=== PATIENT | female | born 1950 | race Asian ===

== ENCOUNTER 2018-02-19 13:29 | Inpatient (IN) | payer MEDICARE ==
[~2018-02-19] VITALS: Ht 157.5 cm; Wt 61.4 kg
[2018-02-19 14:00] VITALS: BP 120/80
[2018-02-19] MEDS ORDERED: ACET-2853 MT (14:14)
[2018-02-19] MEDS ORDERED: GUAI474L3 PO (14:14)
[2018-02-19] MEDS ORDERED: ENOX40DI8 SQ (14:14)
[2018-02-19] MEDS ORDERED: CLON-457 PO (14:14)
[2018-02-19] MEDS ORDERED: CEFE1FRO2 IV (14:14)
[2018-02-19] MEDS ORDERED: AZIT500T5 MT (14:14)
[2018-02-19 15:53] VITALS: BP 130/79
[2018-02-19 16:00] VITALS: BP 116/69
[2018-02-19] MEDS: CEFEPIME 1,000 MG in DEXTROSE 5% WATER 50 ML IV SCH (17:59)
[2018-02-19 18:00] VITALS: BP 120/77
[2018-02-19] MEDS: VANCOMYCIN 1 G PREMIX 200 ML IV SCH (18:25)
[2018-02-19 20:00] VITALS: BP 110/75
[2018-02-19] MEDS: AZITHROMYCIN 500MG in DEXTROSE 5% WATER 250ML IV SCH (21:30)
[2018-02-19 22:00] VITALS: BP 108/72
[2018-02-20] VITALS (11 sets, daily range): BP systolic 106–147; BP diastolic 69–92
[2018-02-20] MEDS: CEFEPIME 1,000 MG in DEXTROSE 5% WATER 50 ML IV SCH ×2 (05:16→16:30)
[2018-02-20 05:57] LABS: INR 1.1; PARTIAL THROMBOPLASTIN TIME 35.7 sec (23.4-31.0); PROTHROMBIN TIME 10.7 sec (9.1-11.1)
[2018-02-20] MEDS: VANCOMYCIN 1 G PREMIX 200 ML IV SCH (06:01)
[2018-02-20 06:11] LABS: CHLORIDE 102 mEq/L (98-107)
[2018-02-20 06:47] LABS: BASOPHILS % 0.7 % (0.0-2.0); EOSINOPHILS % 0.9 % (0.0-5.0); HEMATOCRIT. 35.4 % (36.0-48.0); HEMOGLOBIN. 11.7 g/dL (12.0-16.0); LYMPHOCYTES % 13.5 % (20.0-50.0); MEAN CORPUSCULAR HEMOGLOBIN 30.1 pg (28.0-32.0); MEAN PLATELET VOLUME 6.6 fl (7.4-10.4); MONOCYTES % 10.4 % (2.0-8.0); NEUTROPHILS % 74.5 % (40.0-76.0); PLATELET 630 x1000/uL (130-400); RED CELL DISTRIBUTION WIDTH 13.6 % (11.6-14.6)
[2018-02-20] MEDS ORDERED: AZITHROMYCIN MT SCH (09:00)
[2018-02-20] MEDS ORDERED: HYDROCODONE/ACETAMINOPHEN 5/325MG TABLET PO PRN (10:15)
[2018-02-20 12:14] LABS: CLARITY URINE CLEAR (CLEAR); COLOR URINE YELLOW (YELLOW); KETONES URINE NEGATIVE (NEGATIVE); LEUKOCYTE ESTERASE URINE NEGATIVE (NEGATIVE); NITRITE URINE NEGATIVE (NEGATIVE); OCCULT BLOOD URINE NEGATIVE (NEGATIVE); PH URINE 7.5 (4.5-8.0); PROTEIN URINE NEGATIVE (NEGATIVE); SPECIFIC GRAVITY URINE 1.008 (1.005-1.030)
[2018-02-20] MEDS: VANCOMYCIN 1500MG in DEXTROSE 5% WATER 250ML IV SCH ×2 (13:42→22:32)
[2018-02-20] MEDS: ENOXAPARIN 40MG/0.4ML SYR SUBCUT SCH (15:00)
[2018-02-20] MEDS: AZITHROMYCIN 500MG in DEXTROSE 5% WATER 250ML IV SCH (20:23)
[2018-02-21] VITALS (12 sets, daily range): BP systolic 96–118; BP diastolic 64–83
[2018-02-21] MEDS: CEFEPIME 1,000 MG in DEXTROSE 5% WATER 50 ML IV SCH ×2 (05:53→18:30)
[2018-02-21 06:24] LABS: BASOPHILS % 0.7 % (0.0-2.0); HEMATOCRIT. 34.7 % (36.0-48.0); HEMOGLOBIN. 11.7 g/dL (12.0-16.0); LYMPHOCYTES % 12.8 % (20.0-50.0); MEAN CORPUSCULAR HEMOGLOBIN 30.7 pg (28.0-32.0); MEAN CORPUSCULAR VOLUME 90.8 fL (81.0-99.0); MEAN PLATELET VOLUME 6.7 fl (7.4-10.4); MONOCYTES % 11.1 % (2.0-8.0); NEUTROPHILS % 74.4 % (40.0-76.0); PLATELET 620 x1000/uL (130-400); RED BLOOD CELL COUNT 3.82 mill/uL (4.2-5.4); RED CELL DISTRIBUTION WIDTH 13.5 % (11.6-14.6)
[2018-02-21] MEDS: VANCOMYCIN 1500MG in DEXTROSE 5% WATER 250ML IV SCH ×3 (06:30→23:56)
[2018-02-21 06:39] LABS: CHLORIDE 103 mEq/L (98-107)
[2018-02-21 06:59] LABS: PHOSPHORUS 3.3 mg/dL (2.5-4.9)
[2018-02-21] MEDS: ENOXAPARIN 40MG/0.4ML SYR SUBCUT SCH (08:32)
[2018-02-21] MEDS: POTASSIUM CHLORIDE 20MEQ TABLET SR PO SCH (10:11)
[2018-02-21] MEDS ORDERED: SODIUM BICARBONATE 4% (2.4MEQ) 5ML VIAL IV ONE (10:12)
[2018-02-21] MEDS ORDERED: LIDOCAINE HCL 1% 20ML VIAL (Pyxis) INJ ONE (10:12)
[2018-02-21] MEDS: AZITHROMYCIN 500MG in DEXTROSE 5% WATER 250ML IV SCH (20:32)
[2018-02-22] VITALS (12 sets, daily range): BP systolic 93–127; BP diastolic 67–82
[2018-02-22] MEDS: CEFEPIME 1,000 MG in DEXTROSE 5% WATER 50 ML IV SCH ×2 (04:47→16:56)
[2018-02-22] MEDS: VANCOMYCIN 1500MG in DEXTROSE 5% WATER 250ML IV SCH (07:05)
[2018-02-22] MEDS ORDERED: LIDOCAINE HCL 1% 20ML VIAL (Pyxis) INJ ONE (10:20)
[2018-02-22] MEDS ORDERED: SODIUM BICARBONATE 4% (2.4MEQ) 5ML VIAL IV ONE (10:20)
[2018-02-22] MEDS: POTASSIUM CHLORIDE 20MEQ TABLET SR PO SCH (14:36)
[2018-02-22] MEDS: ENOXAPARIN 40MG/0.4ML SYR SUBCUT SCH (14:39)
[2018-02-22] MEDS: VANCOMYCIN 1,750 MG in DEXT 5% WATER 250 ML IV SCH (18:15)
[2018-02-22] MEDS: AZITHROMYCIN 500MG in DEXTROSE 5% WATER 250ML IV SCH (20:50)
[2018-02-23] VITALS (17 sets, daily range): BP systolic 98–111; BP diastolic 59–81
[2018-02-23] MEDS: VANCOMYCIN 1,750 MG in DEXT 5% WATER 250 ML IV SCH ×2 (02:03→10:28)
[2018-02-23] MEDS: CEFEPIME 1,000 MG in DEXTROSE 5% WATER 50 ML IV SCH ×2 (06:04→16:46)
[2018-02-23] MEDS: POTASSIUM CHLORIDE 20MEQ TABLET SR PO SCH (08:44)
[2018-02-23] MEDS: ENOXAPARIN 40MG/0.4ML SYR SUBCUT SCH (08:47)
[2018-02-23 12:59] LABS: HEMATOCRIT 35.3 % (36.0-48.0); MEAN CORPUSCULAR VOLUME 90.8 fL (81.0-99.0); PLATELET 671 x1000/uL (130-400); RED BLOOD CELL COUNT 3.88 mill/uL (4.2-5.4); RED CELL DISTRIBUTION WIDTH 13.6 % (11.6-14.6)
[2018-02-23 13:49] LABS: CHLORIDE 101 mEq/L (98-107)
[2018-02-23] MEDS: VANCOMYCIN 1500MG in DEXTROSE 5% WATER 250ML IV SCH (19:51)
[2018-02-23] MEDS: AZITHROMYCIN 500MG in DEXTROSE 5% WATER 250ML IV SCH (20:56)
[2018-02-24] VITALS (10 sets, daily range): BP systolic 94–110; BP diastolic 61–76
[2018-02-24] MEDS: CEFEPIME 1,000 MG in DEXTROSE 5% WATER 50 ML IV SCH ×2 (05:00→16:28)
[2018-02-24] MEDS: VANCOMYCIN 1500MG in DEXTROSE 5% WATER 250ML IV SCH (05:39)
[2018-02-24] MEDS: POTASSIUM CHLORIDE 20MEQ TABLET SR PO SCH (08:17)
[2018-02-24] MEDS: ENOXAPARIN 40MG/0.4ML SYR SUBCUT SCH (08:23)
[2018-02-24] MEDS ORDERED: VANCOMYCIN 1 G PREMIX 200 ML IV SCH (17:00)
[2018-02-24] MEDS ORDERED: VANCOMYCIN 750 MG PREMIX 150 ML IV SCH (18:00)
[2018-02-25 04:13] LABS: MYCOPLASMA PNEUMONIAE IGG 610 U/mL (0-99); MYCOPLASMA PNEUMONIAE IGM < 770 U/mL (0-769)
== END 2018-02-24 19:10 | disposition home or self-care (01) | DRG 871 ==
LOC: 3WST 13:29
PROVIDERS: ADMIT Internal Medicine Nephrology; ATTEND Internal Medicine Nephrology
PROC: 0W9B30Z Drainage of Left Pleural Cavity with Drainage Device, Percutaneous Approach (ICD-10-PCS; principal; 2018-02-21)
PROC: 02HV33Z Insertion of Infusion Device into Superior Vena Cava, Percutaneous Approach (ICD-10-PCS; 2018-02-22)
PROC: B5181ZA Fluoroscopy of Superior Vena Cava using Low Osmolar Contrast, Guidance (ICD-10-PCS; 2018-02-22)
PROC: B548ZZA Ultrasonography of Superior Vena Cava, Guidance (ICD-10-PCS; 2018-02-22)
DX: A41.9 Sepsis, unspecified organism (principal); J18.9 Pneumonia, unspecified organism; E43 Unspecified severe protein-calorie malnutrition; J86.9 Pyothorax without fistula; E87.6 Hypokalemia; I10 Essential (primary) hypertension; J20.9 Acute bronchitis, unspecified; R06.03 Acute respiratory distress; J45.909 Unspecified asthma, uncomplicated; Z88.0 Allergy status to penicillin; Z79.899 Other long term (current) drug therapy; Z68.24 Body mass index [BMI] 24.0-24.9, adult
CPT/HCPCS: 32555; 36415; 36569; 71045; 71250; 76937; 77001; 80048; 80202; 83735; 84100; 85027; 86738; 87075; 87116; 88108; 88312; 93306; 93970; C1725; C1729; J0456; J0692; J1650; J3370; J3490; J7050; J7060